=== PATIENT | female | born 1985 | race American Indian/Alaskan Native ===

== ENCOUNTER 2017-03-09 05:59 | Inpatient (IN) ==
--- NOTE | 2017-03-05 17:10 | XRay Report ---
INDICATION: Preoperative evaluation TECHNIQUE: PA and lateral upright chest x-ray COMPARISON: None FINDINGS:Lungs are negative. No parenchymal infiltrate or mass. Heart size and vascularity are normal. Natalie and mediastinum are negative. No pleural fluid. No acute abnormality. IMPRESSION: Negative PA and lateral chest x-ray Interpreted and Authenticated by: Iggy George 03/05/17
[2017-03-05 18:23] LABS: Basophils # (Auto) 0 K/mcL (0.0-0.3); Basophils % (Auto) 0.2 % (0.0-2.0); Eosinophils # (Auto) 0.2 K/mcL (0.0-0.7); Eosinophils % (Auto) 2.1 % (0.0-7.0); Lymphocytes % (Auto) 26.1 % (15.5-49.0); Mean Cell Volume 87.3 fL (80.0-100.0); Mean Corpuscular HGB Conc 33.7 g/dL (31.0-36.0); Mean Corpuscular Hemoglobin 29.4 pg (26.0-34.0); Monocytes # (Auto) 0.7 K/mcL (0.1-0.9); Monocytes % (Auto) 5.6 % (1.0-12.0); Platelet Count 323 K/mcL (140-440); RBC 4.43 M/mcL (4.00-5.20); Red Cell Distribution Width 14.1 % (11.5-14.5)
[2017-03-05 18:32] LABS: ALT/SGPT 30 U/l (0-40); Albumin 4.5 gm/dL (3.2-5.2); Albumin/Globulin Ratio 1.3 (1.0-2.3); Alkaline Phosphatase 86 U/L (39-117); Blood Urea Nitrogen 7 mg/dl (6-20)
[2017-03-09] MEDS ORDERED: cefOXitin 2 GM VIAL IV SCH (06:30)
[2017-03-09] MEDS ORDERED: VANCOMYCIN 1,000 MG in 0.9 % SODIUM CHLORIDE 250 ML IV SCH (06:30)
[2017-03-09] MEDS ORDERED: ROCURONIUM 10 MG/ML ML IV ONE (07:35)
[2017-03-09] MEDS ORDERED: NEOSTIGMINE 1 MG/ML VIAL IV ONE (07:35)
[2017-03-09] MEDS ORDERED: LIDOCAINE HCL/PF 100 MG/5 ML SYRINGE IV ONE (07:35)
[2017-03-09] MEDS ORDERED: GLYCOPYRROLATE 0.2 MG/ML VIAL IV ONE (07:35)
[2017-03-09] MEDS ORDERED: MIDAZOLAM 2 MG/2 ML VIAL IV ONE (07:35)
[2017-03-09] MEDS ORDERED: PROPOFOL 200 MG/20 ML VIAL IV ONE (07:35)
[2017-03-09] MEDS ORDERED: KETAMINE 100 MG/ML ML IV ONE (07:35)
[2017-03-09] MEDS ORDERED: ESMOLOL 100 MG/10 ML VIAL IV ONE (07:35)
[2017-03-09] MEDS ORDERED: ONDANSETRON 4 MG/2 ML VIAL IV ONE (07:35)
[2017-03-09] MEDS ORDERED: METOPROLOL TARTRATE 5 MG/5 ML VIAL IV ONE (07:35)
[2017-03-09] MEDS ORDERED: fentaNYL 100 MCG/2 ML VIAL IV ONE (07:35)
[2017-03-09] MEDS ORDERED: METHOCARBAMOL 1,000 MG/10 ML VIAL IV PRN (08:52)
[2017-03-09] MEDS ORDERED: diphenhydrAMINE 50 MG/ML VIAL IM ONE (08:52)
[2017-03-09] MEDS ORDERED: ONDANSETRON 4 MG/2 ML VIAL IV PRN (08:52)
[2017-03-09] MEDS ORDERED: MEPERIDINE 50 MG/ML SYRINGE IM PRN (08:52)
[2017-03-09] MEDS ORDERED: KETOROLAC 30 MG/ML VIAL IV PRN (08:52)
[2017-03-09] MEDS ORDERED: IPRATROPIUM/ALBUTEROL 3 ML AMPUL.NEB NEB PRN (08:52)
[2017-03-09] MEDS ORDERED: MEPERIDINE 25 MG/ML SYRINGE IV PRN (08:52)
[2017-03-09] MEDS ORDERED: METOPROLOL TARTRATE 5 MG/5 ML VIAL IV PRN (08:52)
[2017-03-09] MEDS ORDERED: LACTATED RINGERS 1,000 ML IV SCH (09:00)
--- NOTE | 2017-03-09 09:15 | Brief Operative Note ---
Date of procedure: 03/09/17 Pre-op diagnosis: incisional hernia with chrinic abdominal pain Post-op diagnosis: other (incisional hernia with chronic abdominal pain) Procedure: exploratory laparotomy with explantation of mesh graft and primary closure Grafts/Implants: Yes (bard graft removed) Anesthesia: GETA Findings: mesh graft separation at superior margin at the umbilicus dense adhesion to omentum but no adherence to the bowel Complications: none Surgeon: Trey Jose Specimens Removed/Pathology: other (mesh graft) Condition: stable Disposition: PACU
[2017-03-09] MEDS: fentaNYL 100 MCG/2 ML VIAL IV PRN ×4 (09:31→10:02)
[2017-03-09] MEDS: 0.9 % SODIUM CHLORIDE 1,000 ML IV SCH (10:32)
[2017-03-09] MEDS: LEVOFLOXACIN 750 MG/150 ML BAG IV SCH (10:33)
[2017-03-09] MEDS: 0.9 % SODIUM CHLORIDE 10 ML SYRINGE IV SCH ×2 (13:04→22:26)
[2017-03-09] MEDS: HYDROcodone/APAP 5/325MG TABLET PO PRN ×2 (13:26→17:54)
[2017-03-09] MEDS: ONDANSETRON 4 MG/2 ML VIAL IV PRN (15:36)
[2017-03-09] MEDS: DOCUSATE SODIUM 100 MG CAPSULE PO SCH (20:10)
[2017-03-09] MEDS ORDERED: ZOLPIDEM 5 MG TABLET PO PRN (21:00)
[2017-03-10] MEDS: HYDROcodone/APAP 5/325MG TABLET PO PRN ×5 (00:09→20:01)
[2017-03-10] MEDS: 0.9 % SODIUM CHLORIDE 1,000 ML IV SCH ×2 (00:30→15:55)
[2017-03-10] MEDS: 0.9 % SODIUM CHLORIDE 10 ML SYRINGE IV SCH ×3 (05:05→23:37)
[2017-03-10 06:01] LABS: Mean Cell Volume 87.5 fL (80.0-100.0); Mean Corpuscular HGB Conc 33.4 g/dL (31.0-36.0); Mean Corpuscular Hemoglobin 29.2 pg (26.0-34.0); Platelet Count 252 K/mcL (140-440); RBC 3.78 M/mcL (4.00-5.20)
[2017-03-10 06:48] LABS: Band Neutrophils % 1 % (0-10); Eosinophils % (Manual) 2 % (0-7); Lymphocytes % 28 % (15-49); Monocytes % (Manual) 3 % (1-12); Myelocytes % 1 % (0-0); Platelet Estimate NORMAL (NORMAL); RBC Morphology NORMAL (NORMAL); Segmented Neutrophils % 65 % (38-78)
[2017-03-10] MEDS: DOCUSATE SODIUM 100 MG CAPSULE PO SCH ×2 (08:14→20:01)
[2017-03-10] MEDS: LEVOFLOXACIN 750 MG/150 ML BAG IV SCH (09:37)
[2017-03-10] MEDS ORDERED: FLU VACC QS2017-18 36MOS UP/PF 60 MCG/0.5 ML SYRINGE IM ONE (10:00)
[2017-03-10] MEDS: ONDANSETRON 4 MG/2 ML VIAL IV PRN (11:10)
--- NOTE | 2017-03-10 13:06 | General Surgery Progress Note ---
Subjective Patient reports: feels better, still having pain, nausea, afebrile Narrative: Note initiated : 03/10/17 at 1:04 pm Service Date, if different from initiated Date: [] Patient: Annalise Moss 31 y/o F admitted on 03/09/17 for Exploration with Removal of Mesh of Abdominal Wall. Chief Complaint: [Patient has poor control of her pain. She also has nausea which has persisted since surgery. Her pain meds seem to exacerbate her nausea. ] Objective Temp Pulse Resp BP Pulse Ox 98.6 F 83 18 115/73 95 03/10/17 11:39 03/10/17 03:15 03/10/17 11:39 03/10/17 11:39 03/10/17 11:39 - Additional Data Intake & Output - Last 24 hours: Intake & Output 03/08/17 03/09/17 03/10/17 03/11/17 05:59 05:59 05:59 05:59 Intake Total 3770 / 3770 150 / 150 Output Total 1675 / 1675 800 / 800 Balance 2094 / 2094 -650 / -650 Weight 217 lb 217 lb - ENT no congestion - Neck no venous distension - Respiratory normal respiratory effort, clear to auscultation - Cardiovascular Cardiovascular exam: Present: normal rate and rhythm, RRR, +S1, +S2. Absent: tachycardia - Abdomen soft, tender, bowel sounds (Patient has good active bowel sounds but her abdomen is diffusely tender. Her surgical incision is unremarkable) - Neurologic normal coordination, normal sensation - Musculoskeletal normal gait, normal posture - Psychiatric oriented to time, oriented to person, oriented to place, speech is normal, memory intact - Labs 03/10/17 04:50 03/05/17 16:43 Assessment and Plan (1) Incisional hernia of anterior abdominal wall without obstruction or gangrene Status: Acute Assessment and plan: We will delay discharge until her nausea and pain are better controlled Current Visit: No (2) Depressed affect Status: Chronic Current Visit: No - Time Spent With Patient Total time spent is greater than 50% in coordination of care (as documented) at patient's floor/unit and/or counseling patient:
[2017-03-11] MEDS: HYDROcodone/APAP 5/325MG TABLET PO PRN ×2 (02:22→07:07)
[2017-03-11] MEDS: 0.9 % SODIUM CHLORIDE 1,000 ML IV SCH (04:32)
[2017-03-11] MEDS: 0.9 % SODIUM CHLORIDE 10 ML SYRINGE IV SCH (05:27)
[2017-03-11] MEDS: DOCUSATE SODIUM 100 MG CAPSULE PO SCH (09:18)
[2017-03-11] MEDS: LEVOFLOXACIN 750 MG/150 ML BAG IV SCH (09:18)
--- NOTE | 2017-03-11 11:57 | Discharge Summary ---
Providers - Providers Patient information: Note initiated : 03/11/17 at 11:53 am Service Date, if different from initiated Date: [] Patient: Annalise Moss 31 y/o F admitted on 03/09/17 for Exploration with Removal of Mesh of Abdominal Wall. Chief Complaint: [] Date of admission: 03/09/17 Discharge date: 03/11/17 Attending physician: Trey Jose Hospitalization Hospital course: 31-year-old female with history of recurrent incisional hernia status post incisional hernia repair with mesh. Patient had increasing severe pain and increasing hernia size. She wished to have the mesh removed rather than have hernia repair. She was counseled twice at 2 separate office visits and immediately preop that once the mesh was removed that she would have a high potential for recurrent hernia and that the hernia would be much larger. She wished to have the mesh removed anyway. She would admitted through day surgery and went laparotomy with removal of mesh on 09 March. She had a very large mesh which appeared to be a Bard type mesh. It was removed in its entirety. It was not adherent to the end of viscera. I only encountered for anteflexed type suture which attached this mesh. The superior margin of the mesh was not attached and that was the area of the hernia recurrence. Her abdominal wall was closed with multiple interrupted #1 Prolene. Her postoperative course was complicated by poor pain control and nausea on the first postoperative day. On the day of discharge she is better and her nausea has resolved. She still has pain but it is controlled with oral medications. She is discharged in stable improved condition Discharge diagnosis: Incisional hernia, recurrent Secondary discharge diagnosis: Chronic abdominal pain due to mesh graft Reason for admission: chronic abdominal pain Procedures: Laparotomy with removal of mesh graft and primary closure of abdominal wall hernia Pertinent studies/significant findings: None Complications: None Exam Temp Pulse Resp BP Pulse Ox 98.9 F 88 18 116/75 94 03/11/17 11:34 03/11/17 04:34 03/11/17 11:34 03/11/17 11:34 03/11/17 11:34 - General physical appearance well developed, well nourished, no distress - Eyes PERRL, normal ocular movement - ENT normal pinna, normal nares, normal mucosa, no hearing loss, no congestion - Head Head exam IM: Present: atraumatic, normocephalic - Neck no masses, no bruits, trachea midline, no lymphadectomy, no venous distension - Cardiovascular Cardiovascular exam IM: Present: normal rate and rhythm - Respiratory normal expansion, normal respiratory effort, clear to auscultation, other (Poor inspiratory effort with splinting) - Abdomen Abdomen: Present: soft, tender, bowel sounds, distended (Mild distention with active bowel sounds; incision looks unremarkable) Hernia: Present: none - Integumentary Present: no rash, no growths, no abnormal pigmentation - Neurologic Present: normal coordination, normal sensation - Musculoskeletal Present: normal gait, normal posture - Psychiatric Present: oriented to time, oriented to person, oriented to place, speech is normal, memory intact, other (Chronic mild depressed affect) Discharge Plan - Patient/Caregiver Discharge Instructions Activity: increase activity as tolerated Diet: Regular Diet Additional Instructions: Leave dressing in place until your return to the office No lifting over 20 pounds for the next 6 weeks Follow-up appointment in 2 weeks Prescriptions: oxyCODONE HCL/ACETAMINOPHEN [Endocet 10-325 mg Tablet] 1 each PO Q4HP PRN #60 tab PRN Reason: Pain - Follow up Plan Follow up with: Trey Jose MD [Physician] - 03/26/17 8:45 am Disposition: Home, Self-Care Prognosis: Good Rehab Potential: Good I certify that the patient requires SNF services.: No Overall status at discharge: patient is not back to baseline Pending Studies Resuscitation Status Full Code Diet Clear Liquid Diet Start SunMar 09 0920 Hydrocodone Bitart/Acetaminophen ([place] 5/325mg) 1 tab PO Q4HP PRN PRN Reason: Pain Last Admin: 03/11/17 07:07 Dose: 1 tab Admin: 03/11/17 02:22 Dose: 1 tab Admin: 03/10/17 20:01 Dose: 1 tab Admin: 03/10/17 15:56 Dose: 1 tab Admin: 03/10/17 12:25 Dose: 1 tab Admin: 03/10/17 08:14 Dose: 1 tab Admin: 03/10/17 00:09 Dose: 1 tab Admin: 03/09/17 17:54 Dose: 1 tab Admin: 03/09/17 13:26 Dose: 1 tab Docusate Sodium (Colace) 100 mg PO BID ULISES Last Admin: 03/11/17 09:18 Dose: 100 mg Admin: 03/10/17 20:01 Dose: 100 mg Admin: 03/10/17 08:14 Dose: 100 mg Admin: 03/09/17 20:10 Dose: 100 mg Levofloxacin (Levaquin) 750 mg in 150 mls @ 100 mls/hr IV DAILY ULISES Last Infusion: 03/11/17 10:45 Dose: 0 mls/hr Admin: 03/11/17 09:18 Dose: 100 mls/hr Infusion: 03/10/17 11:07 Dose: 0 mls/hr Admin: 03/10/17 09:37 Dose: 100 mls/hr Infusion: 03/09/17 12:03 Dose: 100 mls/hr Admin: 03/09/17 10:33 Dose: 100 mls/hr Sodium Chloride (Sodium Chloride 0.9%) 1,000 mls @ 75 mls/hr IV .[id number] [facility] Last Admin: 03/11/17 04:32 Dose: 75 mls/hr Infusion: 03/11/17 04:32 Dose: 75 mls/hr Admin: 03/10/17 15:55 Dose: 75 mls/hr Infusion: 03/10/17 15:55 Dose: 0 mls/hr Admin: 03/10/17 00:30 Dose: 75 mls/hr Infusion: 03/09/17 23:52 Dose: 75 mls/hr Admin: 03/09/17 10:32 Dose: 75 mls/hr Morphine Sulfate (Morphine) 4 mg IV Q4HP PRN PRN Reason: Pain Last Admin: 03/11/17 07:06 Dose: 4 mg Admin: 03/11/17 02:22 Dose: 4 mg Admin: 03/10/17 20:01 Dose: 4 mg Admin: 03/10/17 15:57 Dose: 4 mg Admin: 03/10/17 12:25 Dose: 4 mg Admin: 03/10/17 08:15 Dose: 4 mg Admin: 03/10/17 03:10 Dose: 4 mg Admin: 03/09/17 20:10 Dose: 4 mg Admin: 03/09/17 15:36 Dose: 4 mg Admin: 03/09/17 10:44 Dose: 4 mg Ondansetron HCl (Zofran) 4 mg IV Q4HP PRN PRN Reason: Nausea And Vomiting Last Admin: 03/10/17 11:10 Dose: 4 mg Admin: 03/09/17 15:36 Dose: 4 mg Sodium Chloride (Saline Flush) 10 ml IV Q8 ULISES Last Admin: 03/11/17 05:27 Dose: Not Given Admin: 03/10/17 23:37 Dose: Not Given Admin: 03/10/17 15:54 Dose: Not Given Admin: 03/10/17 05:05 Dose: Not Given Admin: 03/09/17 22:26 Dose: Not Given Admin: 03/09/17 13:04 Dose: Not Given Shift Summary 03/11/17 03:02 Shift Summary by Raulito Hernández Pt getting IV morphine and 1 tab [place] for pain. States 6-9/10 pain consistently. Uses pillow for splinting abdomen. Dressing to abdomen CDI. Ambulates to BR independently. Did not complain of N this shift. States she is not passing gas, has not had BM. Stated she felt feverish around 0230, oral temp was 98.8 at this time. IV to right hand running NS @ 75mL/hr. Initialized on 03/11/17 03:02 - END OF NOTE
--- NOTE | 2017-03-13 13:40 | Operative Note ---
DATE OF OPERATION: 03/09/2017 PREOPERATIVE DIAGNOSIS: Incisional hernia with chronic abdominal pain. POSTOPERATIVE DIAGNOSIS: Incisional hernia with chronic abdominal pain. PROCEDURE: Exploratory laparotomy with explantation of mesh graft and primary closure. SURGEON: Trey Jose M.D. FINDINGS: Mesh graft separation at the superior margin of the umbilicus. Dense adhesion of graft to omentum, but no adherence to the bowel. DESCRIPTION: Under general anesthesia, the patient's abdomen was prepped and draped in the sterile field. Midline incision was made above and below the umbilicus. Incision was extended into the subcutaneous fat. The fascia was in the midline. The mesh graft was encountered. There was separation of the graft from the fascia with herniation at the umbilicus. The graft was initially from the fascia circumferentially bilaterally. The superior margin was then explored, and the hernia sac was opened. The graft was then grasped with Allis clamps and maneuvered cephalad. There were dense adhesions of the graft to the omentum, and these were taken down bluntly. No bowel was encountered during the dissection. The more peripheral margins of the graft were then incised using Metzenbaum scissors, and the graft was fully explanted. It had been decided previously that the patient did not want to have another mesh graft placed. Irrigation was carried out. The fascia was closed in the midline using interrupted #1 Prolene, placing the Prolene in a [id number] pattern with multiple sutures used to get the best, snuggest closure possible. The midline fascia was then closed with another row of running locking #1 Prolene. Subcutaneous tissue was irrigated and then closed in two layers with 2-0 Monocryl. The skin was closed with leigh. The patient tolerated the procedure well. She was awakened. Dressing was placed. She was extubated and taken to the postanesthetic care unit in stable, satisfactory condition. LCS:carlos Job ID: [id number] Doc ID: [id number] Trey Jose M.D.
== END 2017-03-11 13:50 | disposition home or self-care (01) | DRG 983 ==
LOC: MEDSUR 05:59 → EDSTATUS 07:30
PROVIDERS: ADMIT Family Medicine Adult Medicine; ATTEND Family Medicine Adult Medicine